=== PATIENT | female | born 1990 | race Caucasian/White ===

== ENCOUNTER 2018-12-06 09:43 | Emergency (ER) | payer MEDICAID ==
[~2018-12-06] VITALS: Ht 165.1 cm; Wt 86.1 kg
[2018-12-06 11:01] VITALS: BP 119/74; PULSE 81; RESP 18; Ht 165.1 cm; Wt 86.1 kg
--- NOTE | 2018-12-06 13:21 | ERD ---
ER Documentation Chief Complaint Chief Complaint vaginal bleeding since morning; + test in [facility] HPI 28-year-old female LMP Nov 14 presents the ED with mild vaginal bleeding for 6 days, with heavy vaginal bleeding since this morning. She admits to mild intermittent crampy pain. States that she had a positive test yesterday at the urgent care. Patient states that she has not seen an E[employer] E[employer]MENT [employer]ER yet however she has an appointment to see them on December 19. ROS All systems reviewed and are negative except as per history of present illness. Allergies Allergies: Coded Allergies: No Known Allergy (Unverified , 12/06/18) PMhx/Soc Medical and Surgical Hx: pt denies Medical Hx, pt denies Surgical Hx Hx Alcohol Use: No Hx Substance Use: No Hx Tobacco Use: No Smoking Status: Never smoker Physical Exam Vitals Vital Signs Date Temp Pulse Resp B/P (MAP) Pulse Ox O2 O2 Flow FiO2 Time Delivery Rate 12/06/18 98.1 81 18 119/74 100 11:01 (89) 12/06/18 97.9 119 16 145/69 99 10:55 (94) Physical Exam Const: No acute distress Head: Atraumatic Eyes: Normal Conjunctiva ENT: Normal External Ears, Nose and Mouth. Neck: Full range of motion. No meningismus. Resp: Clear to auscultation bilaterally Cardio: Regular rate and rhythm, no murmurs Abd: Soft, non tender, non distended. Normal bowel sounds Skin: No petechiae or rashes Back: No midline or flank tenderness Ext: No cyanosis, or edema Neur: Awake and alert Psych: Normal Mood and Affect Result Diagram: 12/06/18 1140 Results 24 hrs Laboratory Tests Test 12/06/18 11:40 White Blood Count 6.7 10^3/ul Red Blood Count 5.06 10^6/ul Hemoglobin 14.6 g/dl Hematocrit 44.8 % Mean Corpuscular Volume 88.5 fl Mean Corpuscular Hemoglobin 28.9 pg Mean Corpuscular Hemoglobin Concent 32.6 g/dl Red Cell Distribution Width 13.0 % Platelet Count 326 10^3/UL Mean Platelet Volume 10.5 fl Immature Granulocytes % 0.700 % Neutrophils % 62.3 % Lymphocytes % 28.5 % Monocytes % 6.9 % Eosinophils % 1.2 % Basophils % 0.4 % Nucleated Red Blood Cells % 0.0 /100WBC Immature Granulocytes # 0.050 10^3/ul Neutrophils # 4.2 10^3/ul Lymphocytes # 1.9 10^3/ul Monocytes # 0.5 10^3/ul Eosinophils # 0.1 10^3/ul Basophils # 0.0 10^3/ul Nucleated Red Blood Cells # 0.0 10^3/ul Urine Color YELLOW Urine Clarity CLOUDY Urine pH 5.0 Urine Specific [place] 1.018 Urine Ketones NEGATIVE mg/dL Urine Nitrite NEGATIVE mg/dL Urine Bilirubin NEGATIVE mg/dL Urine Urobilinogen NEGATIVE mg/dL Urine Leukocyte Esterase NEGATIVE Ilsha/ul Urine Microscopic RBC 9 /HPF Urine Microscopic WBC 6 /HPF Urine Squamous Epithelial Cells MODERATE /HPF Urine Bacteria FEW /HPF Urine Hemoglobin 3+ mg/dL Urine Glucose NEGATIVE mg/dL Urine Total Protein NEGATIVE mg/dl Beta HCG, Quantitative 41.9 mIU/ml Procedures/MDM 28-year-old female LMP Nov 14 presents the ED with mild vaginal bleeding for 6 days, with heavy vaginal bleeding since this morning. LMP Nov 14. Patient looks well, she has been stable vital signs stable to be discharged home to continue to follow-up with an [employer]. In the ED, ultrasound was done which did not identify an intrauterine gestation, patient's beta-hCG level was around 43 which is very low, I have discussed this with the patient that she will need to repeat ultrasound and blood work in about 7 days. Patient has an appointment to see an E[facility] EQU[employer]MENT ASSEM[facility]ER at [facility]. I discussed with her to return sooner if she has any worsening signs or symptoms. She is stable to be discharged home with return precautions Departure Diagnosis: Primary Impression: Vaginal bleeding Condition: Stable NUBIA GRANADOS PA-C Dec 06, 2018 13:21
== END 2018-12-06 13:51 | disposition home or self-care (01) ==
LOC: FTE 09:43
DX: O20.9 Hemorrhage in early pregnancy, unspecified (principal); Z3A.00 Weeks of gestation of pregnancy not specified
CPT/HCPCS: 36415; 76801; 76817; 81001; 84702; 85025; 86900; 86901; Z7502

== ENCOUNTER 2019-05-29 23:34 | Emergency (ER) | payer MEDICAID ==
[~2019-05-29] VITALS: Ht 160 cm; Wt 84.6 kg
[~2019-05-29 23:34] MED LIST: ACET325T33 PO; CEPH-443 PO; NITR-58 PO
[2019-05-29 23:39] VITALS: Ht 160 cm; Wt 84.6 kg
[2019-05-30] MEDS ORDERED: KETOROLAC 30 MG INJ IV STA (00:18)
[2019-05-30] MEDS ORDERED: ONDANSETRON 4 MG INJ IV STA (00:18)
[2019-05-30 02:34] VITALS: BP 110/62; PULSE 75; RESP 18
== END 2019-05-30 02:35 | disposition home or self-care (01) ==
LOC: FTE 23:34
DX: R10.30 Lower abdominal pain, unspecified (principal); R10.2 Pelvic and perineal pain; Z32.01 Encounter for pregnancy test, result positive
CPT/HCPCS: 76856; 80048; 81001; 81025; 84702; 85025; J2405; 36415; 96374

== ENCOUNTER 2019-06-08 15:12 | Emergency (ER) | payer MEDICAID ==
[~2019-06-08] VITALS: Ht 160 cm; Wt 84.2 kg
[2019-06-08 15:28] VITALS: Ht 160 cm; Wt 84.2 kg
[2019-06-08] MEDS ORDERED: ACETAMINOPHEN 325 MG TAB PO STA (16:50)
[2019-06-08] MEDS ORDERED: ONDANSETRON (ODT) 4 MG TAB ODT STA (16:50)
[2019-06-08] MEDS ORDERED: LIDOCAINE 1% (MDV) 20 ML INJ SC ONE (18:30)
[2019-06-08] MEDS ORDERED: CEFTRIAXONE 1 GM INJ IM ONE (18:30)
[2019-06-08 18:40] VITALS: BP 123/67; PULSE 71; RESP 16
== END 2019-06-08 18:45 | disposition home or self-care (01) ==
LOC: FTE 15:12
DX: O26.891 Other specified pregnancy related conditions, first trimester (principal); R10.84 Generalized abdominal pain; R10.2 Pelvic and perineal pain; Z3A.01 Less than 8 weeks gestation of pregnancy
CPT/HCPCS: 36415; 76801; 76817; 81001; 84702; 85025; 86900; 86901; 87086; 96372; J0696; Z7502; Z7610